=== PATIENT | male | born 1990 | race Caucasian/White ===

== ENCOUNTER 2018-06-22 14:08 | Emergency (ER) | payer SELFPAY ==
[~2018-06-22] VITALS: Ht 182.9 cm; Wt 99.8 kg
[2018-06-22 14:20] VITALS: BP_SYST 126
--- NOTE | 2018-06-22 14:24 | NUR ---
Patient to ER bed 8 to gown for evaluation. Side rails up. Report given to Enedelia ELDER.
--- NOTE | 2018-06-22 14:25 | NUR ---
Pt complains of right foot pain since last night. Pt states he was moving boxes at work with his foot and on the way home he felt his foot swelling up. Pt woke up this morning and tried to walk but felt very uncomfortable stating that pain increases when walking. No abrasions or deformity noted. Pt was wheeled into ED by staff. No other injuries/complaints per patient or noted.
--- NOTE | 2018-06-22 14:26 | NUR ---
ER Dr. Chan at bedside examining patient.
--- NOTE | 2018-06-22 14:30 | NUR ---
Xray at patient bedside.
[2018-06-22 14:40] VITALS: BP_SYST 126
--- NOTE | 2018-06-22 14:40 | NUR ---
Patient given written and verbal discharge instructions and verbalizes understanding. ER MD discussed with patient the results and treatment provided. Patient in stable condition. ID arm band removed. Rx of Naprosyn given. Patient educated on pain management and to follow up with PMD. Pain Scale 2. Opportunity for questions provided and answered. Medication side effect fact sheet provided.
== END 2018-06-22 14:40 | disposition home or self-care (01) ==
LOC: SED 14:08
DX: S93.401A Sprain of unspecified ligament of right ankle, initial encounter (principal); S90.31XA Contusion of right foot, initial encounter; X58.XXXA Exposure to other specified factors, initial encounter; Y93.89 Activity, other specified; Y92.89 Other specified places as the place of occurrence of the external cause; Y99.8 Other external cause status
CPT/HCPCS: 99284